=== PATIENT | female | born 1995 | race Caucasian/White ===

== ENCOUNTER 2016-07-07 22:32 | Emergency (ER) | payer SELFPAY ==
[~2016-07-07] VITALS: Ht 170.2 cm; Wt 51.2 kg
[~2016-07-07 22:32] MED LIST: ALLERY MED; GUAI600T; INHALER INH; MULT-1185 PO; PROC-14 PO
[2016-07-07 22:35] VITALS: Ht 170.2 cm; Wt 51.2 kg
--- OUTSIDE RECORDS SUMMARY | 2016-07-07 22:36 | XMS REPORT ---
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 Phone Rocio Sandoval CP Unavailable Allergies, Adverse Reactions, Alerts Substance Reaction Event Type sulfa hives Non Drug Allergy Problems Problem Type Condition Code Onset Dates Condition Status Assessment Nausea R11.0 Active Assessment Left upper quadrant pain R10.12 Active Medications Medication Code System Code Instructions Start Date End Date Status Dosage Ibuprofen [facility] [address]-54 800 MG Orally Three times a day Mar 18, 2016 Mar 28, 2016 1 tablet Ondansetron HCl [facility] [address]-94 4 MG Orally every 4-6 hours as needed Mar 18, 2016 as directed Procedures Procedure Coding System Code Date OFFICE VISIT, EST-LOW COMPLEXITY (15 MIN.) CPT-4 10644 Mar 18, 2016 Vital Signs Date/Time: Mar 18, 2016 Temperature 97.9 F Height 66.75 in Weight 117 lbs Blood Pressure Diastolic 80 mm Hg Blood Pressure Systolic 104 mm Hg Cardiac Monitoring Heart Rate 59 /min BMI 18.46 Index Oximetry 99 % Respiratory Rate 16 /min Results No Known Results Summary Purpose eClinicalWorks Submission
--- OUTSIDE RECORDS SUMMARY | 2016-07-07 22:36 | XMS REPORT | Continuity of Care Document ---
Author Author [facility] Organization [facility] Address Unknown Phone Unavailable Support Name Relationship Address Phone GISSELL PONCE DO Caregiver [facility] [address] [place] [address] LUCIO GUTIERREZ MD Caregiver [facility] [address] [place] [address] Unavailable MARCO BAUMAN MD Caregiver [address] [place], [place] [phone] JATIN REID Next Of Kin [address] [place], [place] [id number] Insurance Providers Payer Name Policy Number Subscriber Name Relationship [employer] Other [id number] Mazin Meneses 19 Child Advance Directives Directive Response Recorded Date/Time Ordered Resuscitation Status Full Code 02/18/14 1:44am Resuscitation Documents on File No 02/18/14 2:30am Chief Complaint and Reason for Visit Chief Complaint OD,SUICIDE ATTEMPT Reason for Visit Drug overdose Suicide attempt Drug overdose Asthma Bipolar disorder Depression Tobacco dependency Leukocytosis Elevated TSH Hypokalemia Seizure disorder Problems Medical Problems Problem Onset Date Status MENSES Unknown Active UTI Unknown Active Alcohol intoxication Unknown Active HYSTRIONIC ACTING OUT Unknown Active Drug overdose Unknown Active Suicide attempt Unknown Active Drug overdose Unknown Active Asthma Unknown Active Bipolar disorder Unknown Active Depression Unknown Active Tobacco dependency Unknown Active Leukocytosis Unknown Active Elevated TSH Unknown Active Hypokalemia Unknown Active Seizure disorder Unknown Active Medications Medication Dose Route Sig Days/Qty Instructions Order Date Discontinued Date Status [Seroquel] 06/09/08 08/13/09 Discontinued Sertraline Hcl 25 Mg PO DAILY 06/22/10 11/10/10 Discontinued Paliperidone 3 Mg PO DAILY 06/22/10 11/10/10 Discontinued Norgestimate-Ethinyl Estradiol 7 Daysx PO DAILY 06/22/10 11/10/10 Discontinued Miscellaneous Information 12/22/10 Active [No Routine Meds] 02/18/14 Active Social History Query Response Start Date Stop Date Smoking Status Unknown if ever smoked Hospital Discharge Instructions Instructions: Care Instructions: Reason for Hospitalization: Suicide attempt I was in the hospital because (patient own words): "I TOOK OXYCONTIN" Discharge Diet: as tolerated Condition at time of discharge: Good Dr Hines on 02/19/14 at 10:30 am - call if time does not work Recommend recheck CXR at that time Dr Arechiga in 1 week Wound/Incision Care: Keep wound clean and dry - continue packing with guaze Notify Physician If: Call Sx if bleeding or increased redness developed aroung Surgical site Condition at time of discharge: Good n/a Durable Medical Equipment: n/a Notify Physician If: Worsening nosebleeds, blood in the stool, abdominal pain General Information: n/a Condition at time of discharge: Fair Plan of Care Discharge Date 02/18/14 5:30pm Disposition 64 [facility] Instructions/Education Provided DI for Suicidal Ideation-Adult Prescriptions See Medications Section Functional Status Query Response Date Recorded Physical Hygiene Self February 17, 2014 11:56pm Disabilities None February 18, 2014 1:56am Devices Used Glasses None February 18, 2014 1:56am Dressing Self February 17, 2014 11:56pm Ambulation Self February 17, 2014 11:56pm Diet Self February 17, 2014 11:56pm Mental Status Alert Oriented February 18, 2014 2:02am Disabilities None February 18, 2014 1:56am Devices Used Glasses None February 18, 2014 1:56am Physical Hygiene Self February 17, 2014 11:56pm Dressing Self February 17, 2014 11:56pm Ambulation Self February 17, 2014 11:56pm Diet Self February 17, 2014 11:56pm Allergies, Adverse Reactions, Alerts Allergen Type Severity Reaction Status Last Updated Sulfa (Sulfonamide Antibiotics) Allergy Unknown Active 02/18/14 Immunizations Name Given Type Hx Influenza Vaccination N patient refused Historical Hx Pneumococcal Vaccination No Historical Hx Influenza Vaccination N patient refused Historical Vital Signs Acute Vital Signs Vital Response Date/Time Temperature (Fahrenheit) 98.6 deg F (96.8 - 99.1) Temperature (Calculated Celsius) 37.68572 degrees C (36.0 - 37.3) Temperature Source Temporal Pulse Rate (adult) 67 bpm (60 - 100) Respiratory Rate 26 breaths/min (10 - 20) O2 Sat by Pulse Oximetry 98 % (90 - 100) Oxygen Delivery Method Room Air Blood Pressure 105/65 mm Hg Blood Pressure Source Automatic Cuff Height 5 ft 7 in Weight 115 lb Body Mass Index 18.0 kg/m^2 Results Test Source Date Result Interp. Ref. Range Comments Acetaminophen Level February 18, 2014 11:43am < 10 UG/ML L 10-30 TOXIC <4 HR POST INGESTION: >150 MG/L;TOXIC <12 HR POST INGESTION: >50 MG/L Alanine Aminotransferase (ALT/SGPT) February 17, 2014 11:30pm 23 U/L N 9 -52 Albumin February 17, 2014 11:30pm 4.6 G/DL N 3.5-5.0 Albumin/Globulin Ratio February 17, 2014 11:30pm 1.6 RATIO N 1.1-2.2 Alcohol, Quantitative February 17, 2014 11:30pm <10 MG/DL - Alkaline Phosphatase February 17, 2014 11:30pm 59 U/L N 38-126 Anion Gap February 18, 2014 11:43am 8 MEQ/L N 5-15 Aspartate Amino Transf (AST/SGOT) February 17, 2014 11:30pm 21 U/L N 14- 36 BUN/Creatinine Ratio February 18, 2014 11:43am 6 RATIO N 6-26 Band Neutrophils # February 17, 2014 11:30pm 0.6 T/MM3 - Band Neutrophils % February 17, 2014 11:30pm 5.0 % N 0-6 Basophils # (Auto) February 18, 2014 11:43am 0.0 T/MM3 N 0-0.2 Basophils (%) (Auto) February 18, 2014 11:43am 0.5 % N 0-2 Blood Urea Nitrogen February 18, 2014 11:43am 4.0 MG/DL DL 7-17 Calcium Level February 18, 2014 11:43am 8.4 MG/DL N 8.4-10.2 Calculated Osmolality February 18, 2014 11:43am 269 MOSM/KG N 261-280 Carbon Dioxide Level February 18, 2014 11:43am 27 MEQ/L N 22-30 Chemistry Specimen Hemolysis February 18, 2014 11:43am < 15 0-25 0-25 : No Hemolysis.26-70: Slight Hemolysis - can falsely elevate K and Urine Protein. 71-285: Moderate Hemolysis - can falsely elevate K, Troponin I, CA 19-9, PTH, CSF GLucose, and Urine Protein, and can falsely decrease Phenytoin. 286-999: Gross Hemolysis - can falsely elevate K, Troponin I, CA 19-9, PTH, CSF Glucose, and Urine Protine, and can falsely decrease Phenytoin. Recommend specimen recollection. Chlamydia Culture (LAB) August 07, 2011 9:30am Sent out - Chloride Level February 18, 2014 11:43am 107 MEQ/L N 98-107 Conjugated Bilirubin June 23, 2010 12:02am 0.00 MG/DL N 0.00-0.30 Creatinine February 18, 2014 11:43am 0.7 MG/DL N 0.7-1.2 D-Dimer June 26, 2013 11:18am 174 NG/ML N 0-400 <400 NG/ML= PRESUMPTIVE NEGATIVE FOR PE OR DVT>400 NG/ML=ADDITIONAL EVALUATION FOR PE OR DVT RECOMMENDED Eosinophils # (Auto) February 18, 2014 11:43am 0.0 T/MM3 N 0-0.5 Eosinophils (%) (Auto) February 18, 2014 11:43am 0.3 % N 0-4 Free Thyroxine February 18, 2014 11:43am 1.28 NG/DL N 0.78-2.19 COMMENT bilCOMMENT tammy 1100 PER PHYSICIAN Globulin February 17, 2014 11:30pm 2.8 G/DL N 2.4-3.6 Glomerular Filtration Rate Calc February 18, 2014 11:43am 108 - Glucometer February 17, 2014 11:49pm 137 mg/dL H 65-110 Glucose Level February 18, 2014 11:43am 82 MG/DL N 65-110 Hematocrit February 18, 2014 11:43am 32.4 % DL 36-46 Hemoglobin February 18, 2014 11:43am 10.9 GM/DL DL 12-16 Human Chorionic Gonadotropin, Qual December 19, 2012 1:55am Negative - Icterus Index February 18, 2014 11:43am < 2 0-7 Immature Granulocyte # (Auto) February 18, 2014 11:43am 0.01 T/MM3 N 0.00-0.03 Immature Granulocyte % (Auto) February 18, 2014 11:43am 0.1 % N 0.0-0.5 Lab Scanned Report June 26, 2013 2:37pm LAB TEST FORM REQUEST [id number] - Lipase February 17, 2014 11:30pm 42 U/L N 23-300 Lymphocytes # (Auto) February 18, 2014 11:43am 2.0 T/MM3 N 1-4.8 Lymphocytes # (Manual) February 17, 2014 11:30pm 5.8 T/MM3 H 1-4.8 Lymphocytes % (Manual) February 17, 2014 11:30pm 47.0 % H 23-45 Lymphocytes (%) (Auto) February 18, 2014 11:43am 25.5 % N 23-45 Magnesium Level February 18, 2014 11:43am 1.7 MG/DL N 1.6-2.3 COMMENT bilCOMMENT tammy 1100 PER PHYSICIAN Mean Corpuscular Hemoglobin February 18, 2014 11:43am 29.6 UUG N 26-34 Mean Corpuscular Hemoglobin Concent February 18, 2014 11:43am 33.6 GM/DL N 31-37 Mean Corpuscular Volume February 18, 2014 11:43am 88.0 UM3 N 80-100 Mean Platelet Volume February 18, 2014 11:43am 10.6 UM3 N 9.4-12.4 Metamyelocytes # February 17, 2014 11:30pm 0.2 T/MM3 - Metamyelocytes % February 17, 2014 11:30pm 2.0 % H 0-0 Monocytes # (Auto) February 18, 2014 11:43am 0.5 T/MM3 N 0-0.8 Monocytes # (Manual) February 17, 2014 11:30pm 0.4 T/MM3 N 0-0.8 Monocytes % (Manual) February 17, 2014 11:30pm 3.0 % N 0-9.0 Monocytes (%) (Auto) February 18, 2014 11:43am 6.2 % N 0-9.0 Monoscreen June 13, 2010 9:33am Negative - CALLED TO [phone]--- 06/13/10 0957 --- MONOT previously reported as: NEGATIVE Myelocytes # February 17, 2014 11:30pm 0.1 T/MM3 - Myelocytes % February 17, 2014 11:30pm 1.0 % H 0-0 Neutrophils # (Auto) February 18, 2014 11:43am 5.3 T/MM3 N 1.8-7.7 Neutrophils # (Manual) February 17, 2014 11:30pm 4.0 T/MM3 N 1.8-7.7 Neutrophils % (Manual) February 17, 2014 11:30pm 32.0 % L 33-66 Neutrophils (%) (Auto) February 18, 2014 11:43am 67.4 % H 33-66 Platelet Count February 18, 2014 11:43am 215 T/MM3 N 130-400 Potassium Level February 18, 2014 11:43am 3.7 MEQ/L N 3.6-5 RDW Standard Deviation February 18, 2014 11:43am 39.4 FL N 36.9-50.2 Reactive Lymphocytes # February 17, 2014 11:30pm 1.2 T/MM3 H 0-0 Reactive Lymphocytes % February 17, 2014 11:30pm 10.0 % H 0-0 Red Blood Count February 18, 2014 11:43am 3.68 M/MM3 L 4.00-5.20 Salicylates Level February 17, 2014 11:30pm < 1.0 MG/DL L 2-20 Sodium Level February 18, 2014 11:43am 142 MEQ/L N 134-144 Thyroid Stimulating Hormone (TSH) February 17, 2014 11:30pm 9.57 MIU/L H 0.47-4.68 Total Bilirubin February 17, 2014 11:30pm 0.30 MG/DL N 0.20-1.30 Total Protein February 17, 2014 11:30pm 7.4 G/DL N 6.3-8.2 Troponin I June 26, 2013 11:18am < 0.012 ng/ml 0-0.12 Turbidity February 18, 2014 11:43am < 20 0-20 Unconjugated Bilirubin June 23, 2010 12:02am 0.11 MG/DL N 0.00-1.10 Urinalysis Comment February 17, 2014 11:41pm Microscopic not ind. - Has specimen been collected/obtained? Y Urine Bacteria December 19, 2012 1:50am None seen - Has specimen been collected/obtained? Y Urine Bilirubin February 17, 2014 11:41pm Negative - Has specimen been collected/obtained? Y Urine Blood February 17, 2014 11:41pm Negative - Has specimen been collected/obtained? Y Urine Collection Type February 17, 2014 11:41pm Lewis indwelling - Has specimen been collected/obtained? Y Urine Color February 17, 2014 11:41pm Yellow - Has specimen been collected/obtained? Y Urine Culture Indicated December 19, 2012 1:50am Cult reflexed &setup - Has specimen been collected/obtained? Y Urine Glucose (UA) February 17, 2014 11:41pm Negative - Has specimen been collected/obtained? Y Urine Ketones February 17, 2014 11:41pm Negative - Has specimen been collected/obtained? Y Urine Leukocyte Esterase February 17, 2014 11:41pm Negative - Has specimen been collected/obtained? Y Urine Microscopic Not Indicated November 10, 2010 4:40am Not indicated - Has specimen been collected/obtained? Y Urine Mucus September 27, 2011 8:35pm Present - Has specimen been collected/obtained? Y Urine Nitrite February 17, 2014 11:41pm Negative - Has specimen been collected/obtained? Y Urine Protein February 17, 2014 11:41pm Negative - Has specimen been collected/obtained? Y Urine RBC December 19, 2012 1:50am Tntc /HPF H - Has specimen been collected/obtained? Y Urine Specific [place] February 17, 2014 11:41pm <=1.005 L - Has specimen been collected/obtained? Y Urine Squamous Epithelial Cells September 27, 2011 8:35pm Many - Has specimen been collected/obtained? Y Urine Turbidity February 17, 2014 11:41pm Clear - Has specimen been collected/obtained? Y Urine Urobilinogen February 17, 2014 11:41pm 0.2 EU/DL - Has specimen been collected/obtained? Y Urine WBC December 19, 2012 1:50am 10-20 /HPF H - Has specimen been collected/obtained? Y Urine pH February 17, 2014 11:41pm 6.0 - Has specimen been collected/ obtained? Y White Blood Count February 18, 2014 11:43am 7.9 T/MM3 N 4.5-11.0 Wet Prep Cervix December 19, 2012 3:05am Chlamydia trachomatis (PCR) Cervix/Vaginal December 19, 2012 3:05am Urine Culture Urine, Clean Catch-Midstream December 19, 2012 2:15am Diphtheroid Bacillus Name: RAHUL MENESES Unit #: [id number] : 1995 Sex: F Loc / Svc: CCU DOS: 02/17/14 Signed Report #: [id number] DIAGNOSTIC IMAGING REPORT TYPE OF EXAM: CHEST 1 VIEW Dictated By: FREDDIE ELLISON MD INDICATION: ITS.REASON: cough ^cough COMPARISON: 12/19/2012 CHEST 1 VIEW: There are monitoring leads. The pelvis is shielded. Heart size is within a normal range. The lungs are normally expanded and clear. There is no evidence of a pleural effusion. IMPRESSION: Negative chest . Procedures No known history of procedures. Encounters Encounter Location Date/Time Discharged Inpatient [facility] 02/18/14 1:44am Recent Diagnosis Drug overdose Suicide attempt Drug overdose Asthma Bipolar disorder Depression Tobacco dependency Leukocytosis Elevated TSH Hypokalemia Seizure disorder
--- OUTSIDE RECORDS SUMMARY | 2016-07-07 22:36 | XMS REPORT ---
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 Name Role Phone Rocio Sandoval CP Unavailable Allergies No Known Allergies Problems Problem Type Condition Code Onset Dates Condition Status Assessment Pelvic pain R10.2 Active Assessment Generalized abdominal pain R10.84 Active Medications No Known Medications Procedures Procedure Coding System Code Date COMPLETE CBC W/AUTO DIFF WBC CPT-4 64343 Feb 24, 2016 COMPREHENSIVE METABOLIC PANEL CPT-4 52815 Feb 24, 2016 URINALYSIS, IN HOUSE CPT-4 33898 Feb 24, 2016 HEMOSURE iFOB SCREENING, IN HOUSE CPT-4 02453 Feb 24, 2016 URINALYSIS WITH MICROSCOPIC CPT-4 14832 Feb 24, 2016 Results No Known Results Summary Purpose eClinicalWorks Submission
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
--- OUTSIDE RECORDS SUMMARY | 2016-07-07 22:36 | XMS REPORT | Continuity of Care Document ---
Author Author [facility] Organization [facility] Address Unknown Phone Unavailable Allergies Active Description Code Type Severity Reaction Onset Reported/Identified Relationship to Patient Clinical Status Yes Sulfa (Sulfonamide Antibiotics) Sulfa (Sulfonamide Antibiotics) Drug Allergy Unknown HIVES Medications Problems Date Dx Coded Attending Type Code Diagnosis Diagnosed By 07/28/2014 Albert DERAS, Desire Evans F 275.2 DIS MAGNESIUM METABOLISM 07/28/2014 Desire Price MD F 276.8 HYPOPOTASSEMIA 07/28/2014 Albert DERAS, Desire Evans F 296.80 BIPOLAR DISORDER, UNSPECIFIED 07/28/2014 Desire Price MD F 305.00 ALCOHOL ABUSE-UNSPEC 07/28/2014 Desire Price MD F 305.1 TOBACCO USE DISORDER 07/28/2014 Desire Price MD F 314.01 ATTN DEFICIT W HYPERACT 07/28/2014 Albert DERAS, Desire Evans F 493.90 ASTHMA, UNSPECIFIED 07/28/2014 Desire Price MD F 577.0 ACUTE PANCREATITIS 07/28/2014 Albert DERAS, Desire L F 780.39 OTHER CONVULSIONS 07/28/2014 Albert DERAS, Desire L A 789.00 07/28/2014 Desire Price MD F V14.2 HX-SULFONAMIDES ALLERGY Procedures Results Test Result Range URINALYSIS, ROUTINE - 11/11/13 03:20 UA LEUKOCYTE ESTERASE DIPSTICK NEGATIVE NEGATIVE UA NITRITE DIPSTICK NEGATIVE NEGATIVE UA PROTEIN DIPSTICK 1+ NEGATIVE UA GLUCOSE DIPSTICK 1+ NEGATIVE UA KETONE DIPSTICK NEGATIVE NEGATIVE UA UROBILINOGEN DIPSTICK NORMAL NORMAL UA BILIRUBIN DIPSTICK NEGATIVE NEGATIVE UA BLOOD DIPSTICK NEGATIVE NEGATIVE UA SPECIFIC GRAVITY 1.010 1.015-1.025 UR PH 8.0 5.0-7.0 UR TEST - 11/11/13 03:20 UR TEST NEGATIVE NEGATIVE UA MICROSCOPIC - 11/11/13 03:20 UA BACTERIA 1+ NEGATIVE UA EPITHELIAL CELLS 1+ epi/hpf 0 - 1+ UA RBC 0-3 rbc/hpf 0 - 3 UA VOLUME FOR EXAM 12.0 mL (12mL STD) UA WBC 0 wbc/hpf 0 - 5 CHEM/HEM PROFILE-BEDSIDE - 07/28/14 04:24 POTASSIUM 3.6 mmol/L 3.5-5.3 METHOD Bedside ANION GAP 20 mmol/L 10-20 METHOD Bedside GLUCOSE 91 mg/dL 70-99 BLOOD UREA NITROGEN 14 mg/dL 7-20 CREATININE 0.8 mg/dL 0.6-1.0 HEMOGLOBIN 14.3 gm/dL 12.0-16.0 HEMATOCRIT 42.0 % 37.0-47.0 SODIUM 145 mmol/L 135-148 CHLORIDE 107 mmol/L 98-110 CARBON DIOXIDE 22 mmol/L 21-32 CALCIUM IONIZED 4.5 mg/dL 4.5-5.3 CBC W/DIFF - 07/28/14 04:25 BASOPHIL # 0.1 k/cumm 0.0-0.2 BASOPHIL % 1 % 0-1 EOSINOPHIL # 0.1 k/cumm 0.1-0.5 EOSINOPHIL % 1 % 2-4 GRANULOCYTE # 3.7 k/cumm 2.0-9.0 GRANULOCYTE % 41 % 50-75 LYMPHOCYTE # 4.4 k/cumm 1.0-4.0 LYMPHOCYTE % 49 % 20-30 MEAN CELL HGB 29.2 pg 27.0-33.0 MEAN CELL HGB CONCENTRATION 34.8 g/dL 32.0-37.0 MEAN CELL VOLUME 83.9 fl 80.0-100.0 MONOCYTE # 0.8 k/cumm 0.1-1.0 MONOCYTE % 9 % 4-6 RED BLOOD CELL 4.79 m/cumm 4.00-6.00 RED CELL DISTRIBUTION WIDTH 12.8 % 11.0- 15.6 WHITE BLOOD CELL 9.1 k/cumm 5.0-10.0 HEMOGLOBIN 14.0 gm/dL 12.0-16.0 HEMATOCRIT 40.2 % 37.0-47.0 PLATELET COUNT 302 k/cumm 150-400 ALCOHOL (ETHANOL) SERUM - 07/28/14 04:25 ALCOHOL (ETHANOL) SERUM 150 mg/dL < 10 HEPATIC FUNCTION PANEL - 07/28/14 04:25 BILI UNCONJUGATED 0.3 mg/dL 0.0-0.7 AST/SGOT 13 Units/L 10-37 ALT/SGPT 20 Units/L < 66 TOTAL PROTEIN 8.1 gm/dL 6.4-8.2 ALBUMIN 4.8 gm/dL 3.4-5.0 BILI TOTAL 0.4 mg/dL 0.0-1.0 ALKALINE PHOSPHATASE TOTAL 50 IU/L 45- 117 BILI CONJUGATED 0.1 mg/dL 0.0-0.3 LIPASE - 07/28/14 04:25 LIPASE 1391 Units/L 73-393 UR DRUGS OF ABUSE SCREEN - 07/28/14 05:40 UR AMPHETAMINES SCREEN NEG (<1000 ng/mL) NEGATIVE UR BARBITURATE SCREEN NEG (< 200 ng/mL) NEGATIVE DRUGS OF ABUSE SCREEN COMMENT UR OPIATES SCREEN NEG (< 300 ng/mL) NEGATIVE UR PHENCYCLIDINE (PCP) SCREEN NEG (< 25 ng/mL) NEGATIVE UR CANNABINOIDS (THC) SCREEN POS (> 50 ng/mL) NEGATIVE UR COCAINE METABOLITE SCREEN NEG (< 300 ng/mL) NEGATIVE UR METHADONE SCREEN NEG (< 300 ng/mL) NEGATIVE UR BENZODIAZEPINE SCREEN NEG (< 200 ng/mL) NEGATIVE URINALYSIS, ROUTINE - 07/28/14 05:45 UA LEUKOCYTE ESTERASE DIPSTICK NEGATIVE NEGATIVE UA NITRITE DIPSTICK NEGATIVE NEGATIVE UA PROTEIN DIPSTICK NEGATIVE NEGATIVE UA GLUCOSE DIPSTICK NEGATIVE NEGATIVE UA KETONE DIPSTICK NEGATIVE NEGATIVE UA UROBILINOGEN DIPSTICK NORMAL NORMAL UA BILIRUBIN DIPSTICK NEGATIVE NEGATIVE UA BLOOD DIPSTICK NEGATIVE NEGATIVE UA SPECIFIC GRAVITY 1.010 1.015-1.025 UR PH 7.0 5.0-7.0 UR TEST - 07/28/14 05:47 UR TEST NEGATIVE NEGATIVE MRSA SURVEILLANCE SCREEN - 07/28/14 08:15 Microbiology THYROID STIM HORMONE (TSH) - 07/28/14 10:39 THYROID STIM HORMONE (TSH) 3.57 uIU/mL 0.34-4.82 CBC W/DIFF - 07/29/14 04:56 BASOPHIL # 0.0 k/cumm 0.0-0.2 BASOPHIL % 1 % 0-1 EOSINOPHIL # 0.0 k/cumm 0.1-0.5 EOSINOPHIL % 1 % 2-4 GRANULOCYTE # 2.0 k/cumm 2.0-9.0 GRANULOCYTE % 39 % 50-75 LYMPHOCYTE # 2.7 k/cumm 1.0-4.0 LYMPHOCYTE % 51 % 20-30 MEAN CELL HGB 28.8 pg 27.0-33.0 MEAN CELL HGB CONCENTRATION 33.2 g/dL 32.0-37.0 MEAN CELL VOLUME 86.7 fl 80.0-100.0 MONOCYTE # 0.4 k/cumm 0.1-1.0 MONOCYTE % 8 % 4-6 RED BLOOD CELL 3.99 m/cumm 4.00-6.00 RED CELL DISTRIBUTION WIDTH 12.9 % 11.0- 15.6 WHITE BLOOD CELL 5.2 k/cumm 5.0-10.0 HEMOGLOBIN 11.5 gm/dL 12.0-16.0 HEMATOCRIT 34.6 % 37.0-47.0 PLATELET COUNT 224 k/cumm 150-400 METABOLIC PANEL, COMPREHN - 07/29/14 04:56 POTASSIUM 3.5 mmol/L 3.5-5.3 EST GFR (MDRD) > 60 mL/min > 59 ANION GAP 5 mmol/L 5-15 EST CrCl (CG) > 60 mL/min > 59 GLUCOSE 70 mg/dL 70-99 CALCIUM 8.6 mg/dL 8.5-10.1 BLOOD UREA NITROGEN 8 mg/dL 7-20 CREATININE 0.7 mg/dL 0.6-1.0 SODIUM 141 mmol/L 135-148 CHLORIDE 108 mmol/L 98-110 AST/SGOT 12 Units/L 10-37 ALT/SGPT 14 Units/L < 66 CARBON DIOXIDE 28 mmol/L 21-32 TOTAL PROTEIN 6.3 gm/dL 6.4-8.2 ALBUMIN 3.6 gm/dL 3.4-5.0 BILI TOTAL 0.7 mg/dL 0.0-1.0 ALKALINE PHOSPHATASE TOTAL 42 IU/L 45- 117 LIPID PANEL - 07/29/14 04:56 CHOLESTEROL/HDL RATIO 2.5 < 5.0 LDL CHOLESTEROL 54 mg/dL < 100 VLDL CHOLESTEROL 10 mg/dL < 30 TRIGLYCERIDES 50 mg/dL < 150 CHOLESTEROL 107 mg/dL < 200 HDL CHOLESTEROL 43 mg/dL > 39 PHOSPHORUS - 07/29/14 04:56 PHOSPHORUS 3.3 mg/dL 2.5-4.9 MAGNESIUM - 07/29/14 04:56 MAGNESIUM 1.8 mg/dL 1.8-2.4 LIPASE - 07/29/14 04:56 LIPASE 64 Units/L 73-393 CBC W/DIFF - 07/30/14 05:29 BASOPHIL # 0.0 k/cumm 0.0-0.2 BASOPHIL % 1 % 0-1 EOSINOPHIL # 0.1 k/cumm 0.1-0.5 EOSINOPHIL % 2 % 2-4 GRANULOCYTE # 1.7 k/cumm 2.0-9.0 GRANULOCYTE % 40 % 50-75 LYMPHOCYTE # 2.1 k/cumm 1.0-4.0 LYMPHOCYTE % 49 % 20-30 MEAN CELL HGB 28.7 pg 27.0-33.0 MEAN CELL HGB CONCENTRATION 33.9 g/dL 32.0-37.0 MEAN CELL VOLUME 84.6 fl 80.0-100.0 MONOCYTE # 0.4 k/cumm 0.1-1.0 MONOCYTE % 9 % 4-6 RED BLOOD CELL 4.08 m/cumm 4.00-6.00 RED CELL DISTRIBUTION WIDTH 12.5 % 11.0- 15.6 WHITE BLOOD CELL 4.2 k/cumm 5.0-10.0 HEMOGLOBIN 11.7 gm/dL 12.0-16.0 HEMATOCRIT 34.5 % 37.0-47.0 PLATELET COUNT 217 k/cumm 150-400 RENAL FUNCTION PANEL - 07/30/14 05:29 POTASSIUM 3.3 mmol/L 3.5-5.3 EST GFR (MDRD) > 60 mL/min > 59 ANION GAP 11 mmol/L 5-15 EST CrCl (CG) > 60 mL/min > 59 GLUCOSE 66 mg/dL 70-99 CALCIUM 8.3 mg/dL 8.5-10.1 BLOOD UREA NITROGEN 6 mg/dL 7-20 CREATININE 0.7 mg/dL 0.6-1.0 SODIUM 141 mmol/L 135-148 CHLORIDE 106 mmol/L 98-110 CARBON DIOXIDE 24 mmol/L 21-32 ALBUMIN 3.7 gm/dL 3.4-5.0 PHOSPHORUS 3.9 mg/dL 2.5-4.9 MAGNESIUM - 07/30/14 05:29 MAGNESIUM 1.6 mg/dL 1.8-2.4 LIPASE - 07/30/14 05:29 LIPASE 51 Units/L 73-393 UR TEST - 10/25/15 15:59 UR TEST NEGATIVE NEGATIVE URINALYSIS, ROUTINE - 10/25/15 16:06 UA LEUKOCYTE ESTERASE DIPSTICK NEGATIVE NEGATIVE UA NITRITE DIPSTICK NEGATIVE NEGATIVE UA PROTEIN DIPSTICK 1+ NEGATIVE UA GLUCOSE DIPSTICK NEGATIVE NEGATIVE UA KETONE DIPSTICK NEGATIVE NEGATIVE UA UROBILINOGEN DIPSTICK NORMAL NORMAL UA BILIRUBIN DIPSTICK NEGATIVE NEGATIVE UA BLOOD DIPSTICK 2+ NEGATIVE UA SPECIFIC GRAVITY 1.015 1.015-1.025 UR PH 8.5 5.0-7.0 UA MICROSCOPIC - 10/25/15 16:06 UA VOLUME FOR EXAM TEST NOT PERFORMED mL (12mL STD) UR TEST - 11/02/15 05:37 UR TEST NEGATIVE NEGATIVE URINALYSIS, ROUTINE - 11/02/15 05:38 UA LEUKOCYTE ESTERASE DIPSTICK NEGATIVE NEGATIVE UA NITRITE DIPSTICK NEGATIVE NEGATIVE UA PROTEIN DIPSTICK 2+ NEGATIVE UA GLUCOSE DIPSTICK NEGATIVE NEGATIVE UA KETONE DIPSTICK NEGATIVE NEGATIVE UA UROBILINOGEN DIPSTICK NORMAL NORMAL UA BILIRUBIN DIPSTICK NEGATIVE NEGATIVE UA BLOOD DIPSTICK TRACE NEGATIVE UA SPECIFIC GRAVITY >=1.030 1.015-1.025 UR PH 5.5 5.0-7.0 UA MICROSCOPIC - 11/02/15 05:38 UA EPITHELIAL CELLS 1+ epi/hpf 0 - 1+ UA RBC 0-3 rbc/hpf 0 - 3 UA VOLUME FOR EXAM 12.0 mL (12mL STD) UA WBC 0-1 wbc/hpf 0 - 5 CHLAMYDIA DNA BY PCR - 11/02/15 05:38 Microbiology WET MOUNT - 11/02/15 05:59 Microbiology GRAM STAIN - CHLAMYDIA DNA BY PCR - 11/02/15 05:59 Microbiology Encounters ACCT No. Visit Date/Time Discharge Status Pt. Type Provider Facility Loc./Unit Complaint [id number] 06/26/2013 10:33:00 06/26/2013 23 :59:59 CLS Outpatient [id number] 05/25/2013 10:23:00 05/25/2013 23 :59:59 CLS Outpatient [id number] 05/01/2013 11:59:00 05/01/2013 23 :59:59 CLS Outpatient
--- OUTSIDE RECORDS SUMMARY | 2016-07-07 22:37 | XMS REPORT ---
Demographics Address [address] [facility] [address] [place] [address] Preferred Language Unknown Marital Status Unknown Scientology Affiliation Unknown Race White Ethnic Group Not or 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 Care Aircraft Structure Mechanic Name Role Phone Rocio Sandoval CP Unavailable Allergies No Known Allergies Problems No Known Problems Medications No Known Medications Results No Known Results Summary Purpose [employer] Submission
--- OUTSIDE RECORDS SUMMARY | 2016-07-07 22:37 | XMS REPORT ---
Demographics Address [address] [facility] [address] [place] [address] Preferred Language Unknown Marital Status Unknown Mormonism Affiliation Unknown Race White Ethnic Group Not or 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 Care Coffee Brewer Name Role Phone Rocio Sandoval CP Unavailable Allergies No Known Allergies Problems No Known Problems Medications No Known Medications Results No Known Results Summary Purpose [employer] Submission
--- OUTSIDE RECORDS SUMMARY | 2016-07-07 22:37 | XMS REPORT ---
Demographics Address [address] [facility] [address] [place] [address] Preferred Language Unknown Marital Status Unknown Synagogue Affiliation Unknown Race White Ethnic Group Not or 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 Care Cobol Application Developer Name Role Phone Rocio Sandoval CP Unavailable Allergies No Known Allergies Problems No Known Problems Medications No Known Medications Results No Known Results Summary Purpose [employer] Submission
--- OUTSIDE RECORDS SUMMARY | 2016-07-07 22:37 | XMS REPORT | Continuity of Care Document ---
Author Author [facility] Organization [facility] Address Unknown Phone Unavailable Support Name Relationship Address Phone AUGUST, RAMIRO Upton DO Caregiver [address] [place] [address] Unavailable JATIN REID Next Of Kin [address] [place] [address] Insurance Providers Guarantor Stacey Meneses Address [address] [address] Email DENIED/NO TO PT PORT Payer Self Pay Subscriber's Name Stacey Meneses Relationship 18 Self Chief Complaint and Reason for Visit Chief Complaint Female Urogenital Problems Reason for Visit Trichomonal cervicitis Problems Active Problems Medical Problem Onset Date Status Abdominal pain Unknown Acute Alcohol intoxication Unknown Acute Asthma Unknown Chronic Bipolar disorder Unknown Chronic Cough Unknown Acute Depression Unknown Chronic Drug overdose Unknown Acute Drug overdose Unknown Acute Elevated TSH Unknown Acute Fever Unknown Acute HYSTRIONIC ACTING OUT Unknown Acute Hypokalemia Unknown Acute Leukocytosis Unknown Acute MENSES Unknown Acute Menses painful Unknown Acute Migraine equivalent Unknown Acute Nausea Unknown Acute Seizure disorder Unknown Chronic Sinus congestion Unknown Acute Suicide attempt Unknown Acute Tobacco dependency Unknown Chronic Trichomonal cervicitis Unknown UTI Unknown Acute Urinary urgency Unknown Acute Viral syndrome Unknown Acute Medications Current Home Medications Medication Dose Units Route Directions Days Qty Instructions Start Date Allery Med 01/29/15 Guaifenesin (Mucinex) 600 Mg Tbbp.12hr 01/29/15 Inhaler Unknown Dose Inhalation As Needed for Shortness Of Air/Wheezing 01/29/15 Multivitamin With Minerals (Hair, Skin & Nails) 1 Each Tablet 1 Tab Oral Daily 01/29/15 Prochlorperazine Maleate (Compazine) 10 Mg Tablet 10 Mg Oral Four Times Daily 30 Tablet 01/29/15 Past Home Medications Medication Directions Ordered Status Norgestimate-Ethinyl Estradiol (Ortho Tri-Cyclen) 7 Daysx 3 28 Tablet, 7 Daysx Oral Daily 06/22/10 Discontinued Ondansetron (Zofran Odt) 4 Mg Tab.rapdis, 4 Mg Oral Q6h/0300,0900,1500,2100 as needed for Nausea &/Or Vomiting 08/26/14 Discontinued Paliperidone (Invega) 3 Mg/Blist Pack Tab.osm.24, 3 Mg Oral Daily 06/22/10 Discontinued Prochlorperazine Maleate (Compazine) 5 Mg Tablet, 1 Tab Oral Every 6 Hours as needed for Nausea &/Or Vomiting 08/26/14 Discontinued Seroquel , 06/09/08 Discontinued Sertraline Hcl (Zoloft) 25 Mg Tablet, 25 Mg Oral Daily 06/22/10 Discontinued Social History Social History Problem Response Recorded Date/Time Onset Date Status Illicit drug use 02/18/2014 8:05am Unknown Active Hx Substance Use Y MARIJUANA 01/19/2016 2:00am Not Applicable Not Applicable Hx Alcohol Use No 01/19/2016 2:00am Not Applicable Not Applicable Has the pt used tobacco in the last 12 months Yes 02/18/2014 2:32am Not Applicable Not Applicable Tobacco Usage smoke 02/18/2014 8:11am Not Applicable Not Applicable Query Response Start Date Stop Date Smoking Status Unknown if ever smoked Hospital Discharge Instructions No hospital discharge instructions. Plan of Care Discharge Date 01/19/16 2:55am Disposition 01 DISCHARGED HOME, SELF-CARE Condition at Discharge Improved Instructions/Education Provided How to Detect and Treat STDs Trichomoniasis Prescriptions See Medication Section Referrals [facility] Order Date: 1 Week Additional Instructions/Education We have treated you empirically for gonorrhea and chlamydia. [facility] and take the prescription as written. [facility]. Care Plan and Goals Physician Care Plan Problem: Trich Goal: Follow up with primary care provider Instructions: Take medications and follow care plan as discussed/written Functional Status No functional status results. Allergies, Adverse Reactions, Alerts Allergen Type Severity Reaction Status Last Updated Sulfa (Sulfonamide Antibiotics) Allergy Unknown Active 01/29/15 Immunizations Query Response on File Recorded Date/Time Hx Influenza Vaccination N patient refused 11/04/14 11:18pm Hx Pneumococcal Vaccination No 11/04/14 11:18pm Hx Influenza Vaccination N patient refused 11/04/14 11:18pm Vital Signs Acute Vital Signs Vital Response Date/Time Temperature (Fahrenheit) 98.4 deg F (96.8 - 99.1) 01/19/2016 2:55am Temperature (Calculated Celsius) 36.23332 degrees C (36.0 - 37.3) 01/19/2016 2:55am Pulse Rate (adult) 84 bpm (60 - 100) 01/19/2016 2:55am Respiratory Rate 18 breaths/min (10 - 20) 01/19/2016 2:55am O2 Sat by Pulse Oximetry 94 % (90 - 100) 01/19/2016 2:55am Blood Pressure 106/68 mm Hg 01/19/2016 2:55am Height (Feet) 5 feet 01/19/2016 1:45am Height (Inches) 7.00 inches 01/19/2016 1:45am Weight (Kilograms) 53.700 kg 01/19/2016 1:45am Body Mass Index (BMI) 18.0 01/19/2016 1:45am Results No known relevant diagnostic tests, laboratory data and/or discharge summary. Procedures No known history of procedures. Encounters Encounter Location Arrival/Admit Date Discharge/Depart Date Attending Provider Departed Emergency Room [facility] 01/19/16 1:45am 01/19/16 2: 55am RAMIRO REYNOSO DO Recent Diagnosis
--- OUTSIDE RECORDS SUMMARY | 2016-07-07 22:37 | XMS REPORT ---
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 Care Poultry Debeaker Name Role Phone Rocio Sandoval CP Unavailable Allergies No Known Allergies Problems Problem Type Condition Code Onset Dates Condition Status Assessment Pelvic pain R10.2 Active Medications No Known Medications Results No Known Results Summary Purpose [employer] Submission
--- OUTSIDE RECORDS SUMMARY | 2016-07-07 22:37 | XMS REPORT ---
Demographics Address [address] [facility] [address] [place] [address] Preferred Language Unknown Marital Status Unknown Sabianist Affiliation Unknown Race White Ethnic Group Not or 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 Care Clinical Field Specialist Name Role Phone Rocio Sandoval CP Unavailable Allergies No Known Allergies Problems No Known Problems Medications No Known Medications Results No Known Results Summary Purpose [employer] Submission
--- OUTSIDE RECORDS SUMMARY | 2016-07-07 22:37 | XMS REPORT ---
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 Care Construction Teacher Name Role Phone Rocio Sandoval CP Unavailable Allergies, Adverse Reactions, Alerts Substance Reaction Event Type sulfa hives Non Drug Allergy Problems Problem Type Condition Code Onset Dates Condition Status Assessment Pelvic pain R10.2 Active Medications Medication Code System Code Instructions Start Date End Date Status Dosage Mucinex [facility] [address]-18 600 MG Orally every 12 hrs 1 tablet as needed Doxycycline Hyclate [facility] [address]-38 100 MG Orally Twice a day Jan 20, 2016 Feb 03, 2016 1 capsule Metronidazole [facility] [address]-51 250 MG Orally Twice a day Jan 20, 2016 Jan 27, 2016 2 tablet Procedures Procedure Coding System Code Date URINALYSIS WITH MICROSCOPIC CPT-4 39775 Jan 20, 2016 OFFICE 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, 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 Exam Perf. performed 20160120 ----Bilirubin Negative 20160120 Negative ----Urine Mucus Present 20160120 ----Nitrites Negative 20160120 Negative ----Protein Pos 1+ 20160120 Negative * ----Blood Negative 20160120 Negative ----Urobilinogen 0.2 [id number] <1.0 mg/dL ----pH 5.5 [id number] 5.0-8.0 ----RBC, Urine 0-4 [id number] 0-4 /HPF ----Leukocyte Esterase Negative [id number] Negative ----Appearance Turbid 20160120 * ----Color Yellow 20160120 ----Glucose, Urine Negative 20160120 Negative ----Ketones Negative 20160120 Negative Summary Purpose [employer] Submission
--- OUTSIDE RECORDS SUMMARY | 2016-07-07 22:38 | XMS REPORT | Continuity of Care Document ---
Author Author [facility] Organization [facility] Address Unknown Phone Unavailable Support Name Relationship Address Phone GISSELL PONCE DO Caregiver [facility] [address] [place] [address] LUCIO GUTIERREZ MD Caregiver [facility] [address] [place] [address] Unavailable MARCO BAUMAN MD Caregiver [address] [place], [place] [phone] JATIN REID Next Of Kin [address] [place], [place] [id number] Insurance Providers Payer Name Policy Number Subscriber Name Relationship [employer] Other [id number] Mazin Meneses 18 Child Advance Directives Directive [...] F (96.8 - 99.1) Temperature (Calculated Celsius) 37.30128 degrees C (36.0 - 37.3) Temperature Source [...] 26, 2013 2:37pm LAB TEST FORM REQUEST [id number] - Lipase February 17, 2014 11:30pm 41 [...] 13, 2010 9:33am Negative - CALLED TO [phone]--- 06/13/10 0957 --- MONOT previously reported as: [...] Has specimen been collected/obtained? Y Urine Specific [place] February 17, 2014 11:41pm <=1.005 L - [...] Diphtheroid Bacillus Name: RAHUL MENESES Unit #: [id number] : 1995 Sex: F Loc / Svc: CCU DOS: 02/17/14 Signed Report #: [id number] DIAGNOSTIC IMAGING REPORT TYPE OF EXAM: CHEST [...] procedures. Encounters Encounter Location Date/Time Discharged Inpatient [facility] 02/18/14 1:44am Recent Diagnosis Drug overdose Suicide attempt Drug overdose Asthma Bipolar disorder Depression Tobacco dependency Leukocytosis Elevated TSH Hypokalemia Seizure disorder
--- OUTSIDE RECORDS SUMMARY | 2016-07-07 22:38 | XMS REPORT | Continuity of Care Document ---
Author Author [facility] Organization [facility] Address Unknown Phone Unavailable Allergies Active [...] Status Pt. Type Provider Facility Loc./Unit Complaint [id number] 06/26/2013 10:33:00 06/26/2013 23 :59:59 CLS Outpatient [id number] 05/25/2013 10:23:00 05/25/2013 23 :59:59 CLS Outpatient [id number] 05/01/2013 11:59:00 05/01/2013 23 :59:59 CLS Outpatient
[2016-07-07] MEDS ORDERED: IBUPROFEN 600 MG TABLET PO ONE (22:45)
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
[2016-07-08] MEDS ORDERED: BACL10TA PO (00:21)
[2016-07-08 00:25] VITALS: BP 110/70; PULSE 72; RESP 18; TEMP 98; O2SAT 96
[2016-07-08] MEDS ORDERED: BACLOFEN 10 MG TABLET #3 (PrePack) SENT HOME ONE (00:30)
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
== END 2016-07-08 00:25 | disposition home or self-care (01) ==
LOC: ED 22:32
DX: S29.012A Strain of muscle and tendon of back wall of thorax, initial encounter (principal); S46.912A Strain of unspecified muscle, fascia and tendon at shoulder and upper arm level, left arm, initial encounter; R51 Headache; V48.0XXA Car driver injured in noncollision transport accident in nontraffic accident, initial encounter; Y93.89 Activity, other specified; Y92.488 Other paved roadways as the place of occurrence of the external cause; Y99.8 Other external cause status
CPT/HCPCS: 81025